=== PATIENT | female | born 1990 | race Caucasian/White ===

== ENCOUNTER 2018-05-14 14:11 | Emergency (ER) | payer OTHER ==
--- NOTE | 2018-05-14 15:49 | ED Physician Documentation ---
PD HPI HEAD INJURY - Stated complaint Stated Complaint: HEAD INJURY - Chief complaint Chief Complaint: Trauma Hd/Nk - History obtained from History obtained from: Patient - History of Present Illness Mechanism of head injury: Other (2 nights ago, early Monday morning around 2 AM she was intoxicated and fell and hit the left side of her forehead on the bedside table. She has a persistent headache is mildly worsening and had some nausea and spots in her vision that are now gone. No possibility of .) Review of Systems Constitutional: reports: Reviewed and negative Nose: reports: Reviewed and negative Throat: reports: Reviewed and negative PD ED PE NORMAL - Vitals Vital signs reviewed: Yes - General General: Alert and oriented X 3, No acute distress - HEENT HEENT: PERRL, EOMI, Ears normal, Pharynx benign - Neck Neck: Supple, no meningeal sign, No bony TTP - Neuro Neuro: Alert and oriented X 3, student advisor 2-12 intact Eye Opening: Spontaneous Motor: Obeys Commands Verbal: Oriented GCS Score: 15 - Psych Psych: Normal mood, Normal affect Results - Vitals Vitals: Vital Signs - 24 hr 05/14/18 14:31 Temperature 36.5 C Heart Rate 71 Respiratory 18 Rate Blood Pressure 145/91 H O2 Saturation 98 Oxygen O2 Source Room air PD MEDICAL DECISION MAKING - ED course ED course: 27-year-old woman who is not anticoagulated presents about 56 hours after head injury with persistent symptoms but a normal exam. We discussed the pros and cons of CT imaging and she prefers watchful waiting. Departure - Departure Disposition: 01 Home, Self Care Clinical Impression: Concussion Qualifiers: Encounter type: initial encounter Loss of consciousness presence/duration: without LOC Qualified Code(s): S06.0X0A - Concussion without loss of consciousness, initial encounter Condition: Good Record reviewed to determine appropriate education?: Yes Instructions: ED Concussion Comments: Your blood pressure was elevated today on check into the emergency department. This does not mean that you have hypertension, it is a common phenomenon to come to the emergency department and have elevated blood pressure. I recommend that you see your primary care physician within the week to have it rechecked when yo u are feeling better. Forms: Activity restrictions
[2018-05-14 15:52] VITALS: BP 120/68
== END 2018-05-14 15:51 | disposition home or self-care (01) ==
LOC: ED 14:11
DX: S06.0X0A Concussion without loss of consciousness, initial encounter (principal); R03.0 Elevated blood-pressure reading, without diagnosis of hypertension; W18.30XA Fall on same level, unspecified, initial encounter; W22.8XXA Striking against or struck by other objects, initial encounter
CPT/HCPCS: 99283

== ENCOUNTER 2019-05-13 05:38 | Emergency (ER) | payer OTHER ==
--- NOTE | 2019-05-13 06:01 | ED Physician Documentation ---
PD HPI HEENT - Stated complaint Stated Complaint: RIGHT EAR PX - Chief complaint Chief Complaint: Heent - History obtained from History obtained from: Patient - History of Present Illness Timing - onset: How many days ago (5-6) Timing - details: Gradual onset Location: Right ear Improves: Nothing Associated symptoms: Swollen nodes. No: Fever, Congestion, Rhinorrhea, Cough Recently seen: Clinic - Additional information Additional information: Patient was seen at the [facility] clinic for same symptoms. Patient complains of right ear pain, has been gradually progressing for 5 to 6 days. She was prescribed augmentin at the walk in clinic, has completed two full days of this antibiotic. she presents to the emergency department due to ongoing and, in fact, worsening pain and swelling in and around the right ear. Review of Systems Constitutional: reports: Reviewed and negative Ears: reports: Ear pain. denies: Loss of hearing, Drainage/discharge, Tinnitus/ ringing Nose: reports: Reviewed and negative Throat: reports: Reviewed and negative PD PAST MEDICAL HISTORY - Past Medical History Past Medical History: No COMEDIAN: Other - Past Surgical History Past Surgical History: No - Present Medications Home Medications: Ambulatory Orders Medication Instructions Recorded Confirmed Azithromycin [Zithromax] 250 mg PO DAILY #4 tablet 05/13/19 HYDROcod/ACETAM 5/325 [[place] 5/325] 1 - 2 ea PO Q6H PRN #15 tablet 05/13/19 - Allergies Allergies/Adverse Reactions: Allergies Allergy/AdvReac Type Severity Reaction Status Date / Time No Known Drug Allergies Allergy Verified 05/13/19 05:57 - Social History Does the pt smoke?: Yes Smoking Status: Current every day smoker Does the pt drink ETOH?: Yes Does the pt have substance abuse?: No - Immunizations Immunizations are current?: Yes - POLST Patient has POLST: No PD ED PE NORMAL - Vitals Vital signs reviewed: Yes - General General: Alert and oriented X 3, No acute distress, Well developed/nourished - HEENT HEENT: PERRL, EOMI, Moist mucous membranes - Neck Neck: Supple, no meningeal sign PD ED PE EXPANDED - HEENT HEENT: R TM red (mild), Other (Right external auditory canal is erythematous, mildly edematous, moderately tender (with otoscopic exam)) Results - Vitals Vitals: Vital Signs - 24 hr 05/13/19 05/13/19 05:53 06:45 Temperature 36.7 C Heart Rate 76 80 Respiratory 15 20 Rate Blood Pressure 160/120 H 145/83 H O2 Saturation 98 98 Oxygen O2 Source Room air PD MEDICAL DECISION MAKING - ED course Complexity details: considered differential, d/w patient Departure - Departure Disposition: 01 Home, Self Care Clinical Impression: Otitis externa Condition: Good Instructions: ED Otitis Externa Follow-Up: Adrianna Keller MD [Primary Care Provider] - Prescriptions: Azithromycin [Zithromax] 250 mg PO DAILY #4 tablet HYDROcod/ACETAM 5/325 [[place] 5/325] 1 - 2 ea PO Q6H PRN #15 tablet PRN Reason: Pain Comments: Use the ear drops as follows: 3-4 drops in right ear three times per day for 7 days. Discontinue the augmentin (amoxicillin/clavulanic acid) and start the zithromax (azithromycin) as prescribed. You were given a dose in the emergency department, so the next dose is to be taken tomorrow (May 14) Discharge Date/Time: 05/13/19 06:45
[2019-05-13] MEDS ORDERED: HYDROcod/ACETAM 5/325 MG TABLET PO STA (06:26)
[2019-05-13] MEDS ORDERED: NEOMYCIN/POLYMYX/HC OTIC DROPS RIGHTEAR STA (06:30)
[2019-05-13] MEDS ORDERED: AZITHROMYCIN 250 MG TABLET PO STA (06:30)
[2019-05-13 06:46] VITALS: BP 145/83
== END 2019-05-13 06:45 | disposition home or self-care (01) ==
LOC: ED 05:38
DX: H60.91 Unspecified otitis externa, right ear (principal); F17.200 Nicotine dependence, unspecified, uncomplicated
CPT/HCPCS: 99282; 99283; A9270

== ENCOUNTER 2020-06-08 18:50 | Emergency (ER) | payer OTHER ==
[2020-06-08 19:16] LABS: MUDS CUTOFF CONCENTRATIONS CUTOFF CONC BELOW:
[2020-06-08 19:25] LABS: BILIRUBIN,URINE NEGATIVE (NEGATIVE); GLUCOSE, URINE (UA) NEGATIVE (NEGATIVE); KETONES,URINE (UA) NEGATIVE (NEGATIVE); LEUKOCYTE ESTERASE, URINE NEGATIVE (NEGATIVE); NITRITE,URINE NEGATIVE (NEGATIVE); OCCULT BLOOD,URINE NEGATIVE (NEGATIVE); PH,URINE 5.5 PH (5.0-7.5); PROTEIN,URINE NEGATIVE (NEGATIVE); UROBILINOGEN,URINE 0.2 (NORMAL) E.U./dL (NORMAL)
[2020-06-08 19:28] LABS: CLARITY,URINE CLEAR (CLEAR); HCG UR QUAL NEGATIVE
--- NOTE | 2020-06-08 19:31 | ED Physician Documentation ---
PD HPI MHE - Stated complaint Stated Complaint: OVERDOSE - Chief complaint Chief Complaint: MHE - History obtained from History obtained from: Patient - History of Present Illness Primary symptom: Suicide attempt Timing - onset: Today Pain level max: 0 Pain level now: 0 Similar symptoms before: Has not had sx before Recently seen: Not recently seen - Additional information Additional information: 30-year-old female presents to the emergency department complaining of suicide attempt today. She has been increasingly depressed recently. She states she has never been hospitalized for psychiatric illness. She has a psychiatrist that she sees in [place]. She believes that she took approximately 20 x 20 mg tablets of Zoloft tonight. Took the pills about 4 hours prior to arrival. 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 - Past Surgical History Past Surgical History: No - Present Medications Home Medications: Ambulatory Orders Medication Instructions Recorded Confirmed Azithromycin [Zithromax] 250 mg PO DAILY #4 tablet 05/13/19 HYDROcod/ACETAM 5/325 [[place] 5/325] 1 - 2 ea PO Q6H PRN #15 tablet 05/13/19 - Allergies Allergies/Adverse Reactions: Allergies Allergy/AdvReac Type Severity Reaction Status Date / Time No Known Drug Allergies Allergy Verified 06/08/20 19:02 - Social History Does the pt smoke?: Yes Smoking Status: Current every day smoker Does the pt drink ETOH?: Yes Does the pt have substance abuse?: No - Immunizations Immunizations are current?: Yes - POLST Patient has POLST: No PD ED PE NORMAL - Vitals Vital signs reviewed: Yes - General General: Alert and oriented X 3, No acute distress, Well developed/nourished - HEENT HEENT: Moist mucous membranes - Neck Neck: Supple, no meningeal sign - Cardiac Cardiac: RRR, Strong equal pulses - Respiratory Respiratory: No respiratory distress, Clear bilaterally - Abdomen Abdomen: Soft, Non tender, Non distended - Derm Derm: Warm and dry, No rash - Extremities Extremities: No edema - Neuro Neuro: Alert and oriented X 3 - Psych Psych: Normal mood, Normal affect Results - Vitals Vitals: Vital Signs - 24 hr 06/08/20 06/08/20 18:56 21:01 Temperature 36.5 C Heart Rate 65 60 Respiratory 20 16 Rate Blood Pressure 169/115 H 126/86 H O2 Saturation 99 100 Oxygen O2 Source Room air - EKG (time done) 1917 Rate: Rate (enter#) (62) Rhythm: NSR Beals: Normal Intervals: Normal [place] QRS: Normal Ischemia: Normal ST segments - Labs Labs: Laboratory Tests 06/08/20 06/08/20 06/08/20 19:07 19:30 19:30 WBC 8.6 RBC 4.56 Hgb 13.7 Hct 41.0 MCV 89.9 MCH 30.0 MCHC 33.4 RDW 13.4 Plt Count 285 MPV 10.7 Neut # (Auto) 5.2 Lymph # (Auto) 2.0 [place] # (Auto) 0.9 Eos # (Auto) 0.4 Baso # (Auto) 0.1 Absolute Nucleated RBC 0.00 Nucleated RBC % 0.0 Sodium 138 Potassium 3.7 Chloride 100 L Carbon Dioxide 25 Anion Gap 13.0 BUN 13 Creatinine 0.7 Estimated GFR (MDRD) 100 Glucose 87 Calcium 9.0 Phosphorus 2.8 Magnesium 1.9 Total Bilirubin 0.2 AST 25 ALT 38 Alkaline Phosphatase 59 Total Protein 7.2 Albumin 3.7 Globulin 3.5 Albumin/Globulin Ratio 1.1 Lipase 27 TSH Urine Color YELLOW Urine Clarity CLEAR Urine pH 5.5 Ur Specific [place] 1.025 Urine Protein NEGATIVE Urine Glucose (UA) NEGATIVE Urine Ketones NEGATIVE Urine Occult Blood NEGATIVE Urine Nitrite NEGATIVE Urine Bilirubin NEGATIVE Urine Urobilinogen 0.2 (NORMAL) Ur Leukocyte Esterase NEGATIVE Ur Microscopic Review NOT INDICATED Urine Culture Comments NOT INDICATED Urine HCG, Qual NEGATIVE Salicylates < 6.0 Urine Opiates Screen NEGATIVE Ur Oxycodone Screen NEGATIVE Urine Methadone Screen NEGATIVE Ur Propoxyphene Screen NEGATIVE Acetaminophen < 10 L Ur Barbiturates Screen NEGATIVE Ur Tricyclics Screen NEGATIVE Ur Phencyclidine Scrn NEGATIVE Ur Amphetamine Screen NEGATIVE U Methamphetamines Scrn NEGATIVE U Benzodiazepines Scrn NEGATIVE Urine Cocaine Screen NEGATIVE U Cannabinoids Screen NEGATIVE Ethyl Alcohol 7.5 06/08/20 19:30 WBC RBC Hgb Hct MCV MCH MCHC RDW Plt Count MPV Neut # (Auto) Lymph # (Auto) [place] # (Auto) Eos # (Auto) Baso # (Auto) Absolute Nucleated RBC Nucleated RBC % Sodium Potassium Chloride Carbon Dioxide Anion Gap BUN Creatinine Estimated GFR (MDRD) Glucose Calcium Phosphorus Magnesium Total Bilirubin AST ALT Alkaline Phosphatase Total Protein Albumin Globulin Albumin/Globulin Ratio Lipase TSH 4.49 Urine Color Urine Clarity Urine pH Ur Specific [place] Urine Protein Urine Glucose (UA) Urine Ketones Urine Occult Blood Urine Nitrite Urine Bilirubin Urine Urobilinogen Ur Leukocyte Esterase Ur Microscopic Review Urine Culture Comments Urine HCG, Qual Salicylates Urine Opiates Screen Ur Oxycodone Screen Urine Methadone Screen Ur Propoxyphene Screen Acetaminophen Ur Barbiturates Screen Ur Tricyclics Screen Ur Phencyclidine Scrn Ur Amphetamine Screen U Methamphetamines Scrn U Benzodiazepines Scrn Urine Cocaine Screen U Cannabinoids Screen Ethyl Alcohol PD MEDICAL DECISION MAKING - ED course Complexity details: reviewed results, re-evaluated patient, considered differential, d/w patient ED course: Patient with an intentional overdose on Prozac today. Poison control recommends 8 hours of observation postingestion. No acute findings on EKG or telemetry. Patient is not vomiting. She states that she still feels suicidal, but is unsure about her need for hospitalization. Once she is medically clear, telepsychiatry will plan to be consulted. If the patient refuses care or attempts to leave, will need DCR evaluation. Patient signed out to the oncoming emergency department physician. Departure - Departure Clinical Impression: Intentional overdose of drug in tablet form Condition: Stable
[2020-06-08 19:37] LABS: AMPHETAMINE SCREEN,URINE NEGATIVE (NEGATIVE); BENZODIAZEPINES SCREEN, URINE NEGATIVE (NEGATIVE); COCAINE SCREEN URINE NEGATIVE (NEGATIVE); METHADONE SCREEN, URINE NEGATIVE (NEGATIVE); METHAMPHETAMINES SCREEN, URINE NEGATIVE (NEGATIVE); OPIATE SCREEN, URINE NEGATIVE (NEGATIVE); OXYCODONE SCREEN, URINE NEGATIVE (NEGATIVE); PROPOXYPHENE SCREEN, URINE NEGATIVE (NEGATIVE); TRICYCLIC ANTIDEPRESSANT,URINE NEGATIVE (NEGATIVE)
[2020-06-08] MEDS: SODIUM CHLORIDE 0.9% 1,000 ML IV STA ×2 (19:39→19:42)
[2020-06-08 19:56] LABS: BASOPHILS # (AUTO) 0.1 10^3/uL (0.0-0.1); EOSINOPHILS # (AUTO) 0.4 10^3/uL (0.0-0.7); EOSINOPHILS % (AUTO) 4.9 %; HGB - HEMOGLOBIN 13.7 g/dL (12.0-16.0); LYMPHOCYTES % (AUTO) 22.9 %; MEAN CORPUSCULAR HGB CONC 33.4 g/dL (32.0-36.0); MEAN CORPUSCULAR VOLUME 89.9 fL (81.0-99.0); MEAN PLATELET VOLUME 10.7 fL (7.9-10.8); MONOCYTES # (AUTO) 0.9 10^3/uL (0.0-1.0); NEUTROPHILS # (AUTO) 5.2 10^3/uL (1.5-6.6); NEUTROPHILS % (AUTO) 60.9 %; PLT - PLATELET COUNT 285 10^3/uL (130-450); RED BLOOD COUNT 4.56 10^6/uL (4.20-5.40); RED CELL DISTRIBUTION WIDTH 13.4 % (12.0-15.0); WHITE BLOOD COUNT 8.6 x10^3/uL (4.8-10.8)
[2020-06-08 20:12] LABS: ACETAMINOPHEN < 10 ug/mL (10-30); ALBUMIN 3.7 g/dL (3.2-5.5); ALBUMIN/GLOBULIN RATIO 1.1 (1.0-2.2); ALKALINE PHOSPHATASE 59 IU/L (42-121); ALT ALANINE AMINOTRANSFERASE 38 IU/L (10-60); AST ASPARTATE AMINOTRANSFERASE 25 IU/L (10-42); BILIRUBIN,TOTAL 0.2 mg/dL (0.2-1.0); BUN - BLOOD UREA NITROGEN 13 mg/dL (6-20); CARBON DIOXIDE - CO2 25 mmol/L (21-32); CHLORIDE 100 mmol/L (101-111); CREATININE 0.7 mg/dL (0.4-1.0); GLUCOSE 87 mg/dL (70-100); LIPASE 27 U/L (22-51); MAGNESIUM 1.9 mg/dL (1.7-2.8); PHOSPHORUS 2.8 mg/dL (2.5-4.6); SALICYLATE < 6.0 mg/dL; SODIUM 138 mmol/L (135-145); TOTAL PROTEIN 7.2 g/dL (6.7-8.2)
--- NOTE | 2020-06-09 01:20 | ED Physician Documentation ---
ED Addendum - Addendum Addendum: 06/09/20 01:19 The patient is resting comfortably on my recheck and is willing to stay overnight in the ER for social work and further evaluation. A telepsych consult had been placed around 10:30 PM. They called around 12:30 a.m. to tell us they had a long backlog of consults and would be able to provide her a telepsych interview at 7 AM. Nursing updated the patient of this and she is agreeable to staying overnight.
--- NOTE | 2020-06-09 13:54 | TELEPSYCH PHYS NOTE ---
Telepsych Note - CHIEF COMPLAINT/HX OF PRESENT ILLNESS Chief Complaint and History of Present Illness: Location of patient: [facility] Location of provider: [place] This evaluation was conducted via telepsychiatry with the assistance of onsite staff. Reason for consult: Overdose History of Present Illness: Chart reviewed and appreciated, case discussed with attending physician Dr. Pulido. 30 y/o female with history of bipolar disorder, presented to ED yesterday after suicide attempt via overdose on 20 Prozac 20 mg pills. Per notes, pt continued to endorse SI while in the ED. Pt is medically clear. On interview, pt reports Andria just had a lot going on this year that kind of compounded, reports not feeling well for a while now. Denies any particular trigger yesterday, was not really planning or saving up pills. I was frustrated and just over it and not wanting to deal with it anymore, on top of general mental health issues Andria had for a while. Pt states, I think the overdose was with suicidal intent. Pt took half the pills, then got scared and did not take the rest. Pt told what happened a couple of hours later, and he drove pt to the ED. Pt reports still feeling suicidal today, nothing has really changed. Pt reports having frequent SI over the past 9-10 months and has history of cutting in the past but has never attempted suicide before. Pt reports feeling extremely tired currently, hard to focus and states that she did not sleep at all last night. Pt also notes mild anxiety that comes and goes, responds well to propranolol that she usually takes. Pt aware that her current treatment is not working and depression is no longer manageable, but not sure whether she is agreeable to inpatient treatment. I know what I want my answer to be but unable to decide at this time. Pt states that she would like to think about it, perhaps discuss further with her and then decide what to do. Funds Development Director informed pt of DCR referral process if that is needed. Pt expressed understanding. - SI/HI/SELF HARM SI/HI/Self Harm Text (Current or History of):: Past SI/Self harm: Pt endorses past SI but denies history of attempts. Pt does report history of recurrent non-suicidal cutting since age 15, most recently cut 6 months ago. - VIOLENCE/LEGAL/COLLATERAL Violence - Legal - Collateral: Past HI/Violence: Pt denies Access to firearms: owns guns but they are locked in a safe and pt does not have access (does not know combination). Legal: Pt denies Collateral: Pt declines to have contacted at this time - PSYCHIATRIC HX/TREATMENT HX Psychiatric: Bipolar disorder Psychiatric/Treatment Hx Other: Psychiatric History/Treatment History: Pt reports history of bipolar II disorder, has been on Lamictal, Abilify and Prozac for years. Has outpatient psychiatrist, goes every 3-4 months currently. Not in therapy presently, but has appointment set up through her insurance. Denies history of inpatient psych admissions. - DRUG/ALCOHOL HX Substance use/abuse/alcohol text: Drug/Alcohol History: Occasional alcohol use. Negative UDS. - MEDICAL HX Neurological History: None Eyes, Ears, Nose, Throat: None Cardiovascular: None Respiratory: None Skin: None Endocrine/Autoimmune: None Gastrointestinal: None Urinary: None Musculoskeletal: None Blood Disorders: None - HOME MEDICATIONS Home Meds (as last confirmed): Per pt report: Lamictal 250 mg daily Abilify 2 mg daily Prozac 20 mg daily Propranolol 10 mg prn anxiety Vitamin D 1000 units daily Trazodone prn insomnia (unknown dose, not taken recently) - ALLERGIES Allergies (as last confirmed): Allergies Allergy/AdvReac Type Severity Reaction Status Date / Time No Known Drug Allergies Allergy Verified 06/08/20 19:02 - FAMILY PSYCH/SUICIDE/SOCIAL HX-MENTAL Family - Suicide - Social Hx and Mental Status Exam: Family Psych History/History of suicide: Mother bipolar II disorder, brother depression, maternal grandfather bipolar I disorder. Brother attempted suicide 2 years ago. Social History: , lives with and also has two roommates. 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 Education: Bachelors degree Stressors: Work issues, was laid off from prior job, exacerbation of mental illness Trauma: Pt denies, other than parents going through divorce when pt was 14 Strengths/supports: Reports good support from , parents, friends Mental Status Exam: Appearance and attire: disheveled, tired appearing Attitude and behavior: calm, cooperative though somewhat despondent; fair eye contact; tearful at times Speech: somewhat low volume; normal rate Mood: dysthymic Affect: restricted Association and thought processes: linear, logical, goal-directed Thought content: +SI, no current plan reported; denies HI Perception: no evidence of delusions or hallucinations Sensorium and orientation: alert, oriented x 4 Memory and intellectual functioning: grossly intact Insight and judgment: fair to poor - TREATMENT/PHARMACOLOGICAL RECOMMENDATION Treatment - Pharmacological - Therapy Recommendations: Impression/Risk Assessment: 30 y/o female with history of bipolar II disorder, presented to ED after suicide attempt via overdose on 20 Prozac pills. Pt denies HI, denies history of past suicide attempts but does have history of self- injurious behavior by cutting, most recently 6 months ago. Pt continues to endorse SI currently, states that these thoughts have been occurring frequently for nearly a year but more intense recently leading to the overdose. Pt has additional risk factors including multiple external stressors, hopelessness, family history of suicide attempts, and ambivalence regarding treatment plan. There are also firearms in the home, though pt denies direct access. No current collateral available. In setting of recent attempt with ongoing SI and other risk factors, pt remains at elevated risk of danger to self and is not safe for discharge at this time. Diagnosis: F31.81 Bipolar II disorder, current episode depressed, severe Treatment Recommendations: 1. Disposition: Recommend inpatient psychiatric admission for safety/stabilization. If pt is not agreeable, recommend DCR referral to evaluate for possible detainment. 2. Psychiatric medication recommendations: -Continue to hold Prozac. -Confirm and resume home medications of Lamictal, Abilify, prn Propranolol, and prn Trazodone. 3. Observation: Constant observation until transfer to psychiatry. The above recommendations were discussed with pt who expressed understanding. Referring provider not available at this time but recommendations were relayed to NAKUL Cheema. Length of consult: 60 minutes - TIME SPENT & PROVIDER LOCATION Telepsych consultation conducted via videoconferencing: Yes List names and roles of persons who participated in consult: NAKUL Cheema Telepsych Provider Location: [place] Time Telepsych consult began: 13:00 Time Telepsych consult completed: 14:00
[2020-06-09 15:41] LABS: C. PNEUMONIAE- RESP PCR PANEL NOT DETECTED
--- NOTE | 2020-06-09 17:24 | ED Physician Documentation ---
ED Addendum - Addendum Addendum: 06/09/20 17:22 Discussed with patient earlier in the day and she did say that she tried to kill herself with the overdose but is not suicidal at present. She regretted it after thinking about her family. Social work recommending discharge with outpatient follow-up given good family support. Telepsych recommending inpatient hospitalization. DCR states that they are not going to detain her because she has good social support and good insight and will follow up. Discussed with patient. Strict return precautions given.
[2020-06-09 17:43] VITALS: BP 147/99
== END 2020-06-09 17:52 | disposition home or self-care (01) ==
LOC: ED 18:50
DX: T43.222A Poisoning by selective serotonin reuptake inhibitors, intentional self-harm, initial encounter (principal); F31.81 Bipolar II disorder; F17.200 Nicotine dependence, unspecified, uncomplicated; Z20.828 Contact with and (suspected) exposure to other viral communicable diseases
CPT/HCPCS: 0202U; 36415; 80320; 80329; 81003; 81025; 83690; 83735; 84100; 93005; 96360; 96361; 99284; G0426; 80053; 80306; 80307; 81001; 84443; 85025; 87086

== ENCOUNTER 2021-05-10 14:48 | Outpatient (CLI) | payer OTHER | END 2021-05-13 12:11 | LOC: LAB.N 14:48 | PROVIDERS: ATTEND Physician Assistant Medical | DX: R53.83 Other fatigue (principal); Z20.822 Contact with and (suspected) exposure to COVID-19 ==

== ENCOUNTER 2021-05-14 08:00 | Outpatient (CLI) | payer OTHER | END 2021-05-14 23:59 | disposition home or self-care (01) | LOC: LAB 08:00 | PROVIDERS: ATTEND Physician Assistant Medical | DX: J02.9 Acute pharyngitis, unspecified (principal); Z20.822 Contact with and (suspected) exposure to COVID-19 | CPT/HCPCS: 81599; 87798 ==

== ENCOUNTER 2021-08-27 08:26 | Outpatient (CLI) | payer OTHER ==
[2021-08-27 15:02] LABS: ALBUMIN 4.1 g/dL (3.2-5.5); ALBUMIN/GLOBULIN RATIO 1.1 (1.0-2.2); ALKALINE PHOSPHATASE 42 IU/L (42-121); ALT ALANINE AMINOTRANSFERASE 33 IU/L (10-60); AST ASPARTATE AMINOTRANSFERASE 20 IU/L (10-42); BILIRUBIN,TOTAL 0.9 mg/dL (0.2-1.0); BUN - BLOOD UREA NITROGEN 13 mg/dL (6-20); CALCIUM 8.8 mg/dL (8.5-10.3); CARBON DIOXIDE - CO2 26 mmol/L (21-32); CHLORIDE 102 mmol/L (101-111); CHOL/HDL RATIO 4.4 (<4.4); CHOLESTEROL 169 mg/dL; CREATININE 0.7 mg/dL (0.4-1.0); GFR - MDRD 99 (>89); GLUCOSE 108 mg/dL (70-100); HDL CHOLESTEROL 38 mg/dL; LDL CHOLESTEROL,CALCULATED 103 mg/dL; LDL/HDL RATIO 2.7 (<4.4); POTASSIUM 3.8 mmol/L (3.5-5.0); SODIUM 138 mmol/L (135-145); TOTAL PROTEIN 7.8 g/dL (6.7-8.2); TRIGLYCERIDES 141 mg/dL; VLDL CHOLESTEROL 28 mg/dL
[2021-08-27 15:04] LABS: BASOPHILS # (AUTO) 0.1 10^3/uL (0.0-0.1); BASOPHILS % (AUTO) 1.2 %; EOSINOPHILS # (AUTO) 0.3 10^3/uL (0.0-0.7); EOSINOPHILS % (AUTO) 3.5 %; HCT - HEMATOCRIT 42.3 % (37.0-47.0); LYMPHOCYTES # (AUTO) 1.5 10^3/uL (1.5-3.5); LYMPHOCYTES % (AUTO) 19.9 %; MEAN CORPUSCULAR HEMOGLOBIN 29.9 pg (27.0-31.0); MEAN CORPUSCULAR HGB CONC 33.1 g/dL (32.0-36.0); MEAN CORPUSCULAR VOLUME 90.2 fL (81.0-99.0); MEAN PLATELET VOLUME 12.2 fL (7.9-10.8); MONOCYTES # (AUTO) 0.7 10^3/uL (0.0-1.0); MONOCYTES % (AUTO) 9.1 %; NEUTROPHILS # (AUTO) 5.1 10^3/uL (1.5-6.6); NEUTROPHILS % (AUTO) 65.8 %; PLT - PLATELET COUNT 277 10^3/uL (130-450); RED BLOOD COUNT 4.69 10^6/uL (4.20-5.40); RED CELL DISTRIBUTION WIDTH 12.9 % (12.0-15.0); WHITE BLOOD COUNT 7.7 x10^3/uL (4.8-10.8)
[2021-08-27 17:28] LABS: ESTIMATED AVERAGE GLUCOSE 100 mg/dL (70-100); HEMOGLOBIN A1c% 5.1 % (4.27-6.07)
== END 2021-08-27 08:27 | disposition home or self-care (01) ==
LOC: LAB.N 08:26
PROVIDERS: ATTEND Psychiatry & Neurology Psychiatry
DX: Z79.899 Other long term (current) drug therapy (principal)
CPT/HCPCS: 36415; 80053; 80061; 83036; 83721; 84443; 85025

== ENCOUNTER 2023-12-02 15:15 | Outpatient (CLI) | payer OTHER ==
[2023-12-02 20:09] LABS: BASOPHILS # (AUTO) 0.1 10^3/uL (0.0-0.1); BASOPHILS % (AUTO) 0.9 %; EOSINOPHILS # (AUTO) 0.5 10^3/uL (0.0-0.7); EOSINOPHILS % (AUTO) 6.3 %; HCT - HEMATOCRIT 41.6 % (37.0-47.0); HGB - HEMOGLOBIN 13.5 g/dL (12.0-16.0); LYMPHOCYTES % (AUTO) 24.7 %; MEAN CORPUSCULAR HEMOGLOBIN 28.3 pg (27.0-31.0); MEAN CORPUSCULAR HGB CONC 32.5 g/dL (32.0-36.0); MEAN CORPUSCULAR VOLUME 87.2 fL (81.0-99.0); MEAN PLATELET VOLUME 11.6 fL (7.9-10.8); MONOCYTES # (AUTO) 0.6 10^3/uL (0.0-1.0); MONOCYTES % (AUTO) 7.8 %; NEUTROPHILS # (AUTO) 4.8 10^3/uL (1.5-6.6); PLT - PLATELET COUNT 292 10^3/uL (130-450); RED BLOOD COUNT 4.77 10^6/uL (4.20-5.40); RED CELL DISTRIBUTION WIDTH 13.2 % (12.0-15.0)
[2023-12-02 20:26] LABS: ALBUMIN 4.4 g/dL (3.2-5.5); ALBUMIN/GLOBULIN RATIO 1.4 (1.0-2.2); ALKALINE PHOSPHATASE 52 IU/L (42-121); ALT ALANINE AMINOTRANSFERASE 21 IU/L (10-60); AMYLASE 40 U/L (28-100); AST ASPARTATE AMINOTRANSFERASE 15 IU/L (10-42); BILIRUBIN,TOTAL 0.5 mg/dL (0.2-1.0); BUN - BLOOD UREA NITROGEN 11 mg/dL (6-20); CALCIUM 9.7 mg/dL (8.5-10.3); CARBON DIOXIDE - CO2 28 mmol/L (21-32); CHLORIDE 105 mmol/L (101-111); CREATININE 0.6 mg/dL (0.6-1.3); GFR - MDRD 117 (>89); GLUCOSE 108 mg/dL (74-104); POTASSIUM 4.1 mmol/L (3.5-4.5); SODIUM 140 mmol/L (135-145); TOTAL PROTEIN 7.5 g/dL (6.4-8.9)
[2023-12-02 20:51] LABS: LIPASE < 10 U/L (11-82)
== END 2023-12-02 15:30 | disposition home or self-care (01) ==
LOC: LAB.N 15:15
PROVIDERS: ATTEND Nurse Practitioner
DX: R19.7 Diarrhea, unspecified (principal)
CPT/HCPCS: 36415; 80053; 82150; 83690; 85025